=== PATIENT | female | born 1985 | race Caucasian/White ===

== ENCOUNTER 2019-12-25 13:51 | Emergency (ER) | payer OTHER ==
[~2019-12-25] VITALS: Ht 165.1 cm; Wt 56.7 kg
[2019-12-25] MEDS ORDERED: METOCLOPRAMIDE HCL 10 MG/2 ML VIAL IV ONE (14:30)
[2019-12-25] MEDS ORDERED: IV NS 0.9% 1,000 ML IV ONE (14:30)
[2019-12-25] MEDS ORDERED: ACETAMINOPHEN 325 MG TABLET PO ONE (14:30)
[2019-12-25] MEDS ORDERED: METOCLOPRAMIDE HCL 10 MG/2 ML VIAL ONE (14:31)
[2019-12-25] MEDS ORDERED: ACETAMINOPHEN ES 500 MG TABLET ONE (14:31)
[2019-12-25 14:58] LABS: BASOPHILS % (AUTO) 0.3 % (0.0-2.0); HEMATOCRIT 37 % (33-45); HEMOGLOBIN 12.8 g/dL (11.5-14.8); LYMPHOCYTES # (AUTO) 0.6 /CMM (0.8-4.8); MEAN CORPUSCULAR HGB CONC 35 g/dl (31.0-36.0); MEAN CORPUSCULAR VOLUME 90 fL (82-100); MONOCYTES # (AUTO) 0.7 /CMM (0.1-1.30); MONOCYTES % (AUTO) 7.6 % (2.0-12.0); NEUTROPHILS # (AUTO) 8.3 /CMM (1.8-8.9); NEUTROPHILS % (AUTO) 86.1 % (43.0-81.0); PLATELET COUNT (AUTO) 155 /CMM (150-450); RED BLOOD CELL COUNT(AUTO) 4.11 MIL/uL (4.0-5.2); WHITE BLOOD COUNT (AUTO) 9.7 K/uL (4.3-11.0)
[2019-12-25] MEDS ORDERED: IV NS 0.9% 500 ML BAG IV ONE (15:00)
--- NOTE | 2019-12-25 15:03 | NUR ---
Fever and dry cough x 3 days. PT AAOX4, VSS. RR EVEN & UNLABORED. DENIES CP, DIZZINESS, VOMITING, DIARRHEA @ THIS TIME. PT SEEN & EVAL'D BY DR. CORREA. MEDICATED ORDERED, PT ROSANNE WELL.
[2019-12-25 15:04] LABS: CALCIUM, SERUM 8.5 mg/dL (8.5-10.1); CREATININE 0.9 mg/dL (0.6-1.3); POTASSIUM 3.3 mmol/L (3.5-5.1)
[2019-12-25 15:09] LABS: ALBUMIN 3.3 g/dL (3.4-5.0); BILIRUBIN,DIRECT 0.1 mg/dL (0.0-0.2); BILIRUBIN,TOTAL 0.3 mg/dL (0.2-1.0); TOTAL PROTEIN, SERUM 7.3 g/dL (6.4-8.2)
[2019-12-25 15:56] VITALS: BP 113/76
--- NOTE | 2019-12-25 15:56 | NUR ---
Patient discharged to home in stable condition. Written and verbal after care instructions given. Patient verbalizes understanding of instruction. IV removed. Catheter intact and site benign. Pressure and 4x4 applied to site. No bleeding noted.
== END 2019-12-25 15:57 | disposition home or self-care (01) ==
LOC: ER 13:54
DX: B34.9 Viral infection, unspecified (principal); R50.9 Fever, unspecified; R51 Headache; R00.0 Tachycardia, unspecified; E87.1 Hypo-osmolality and hyponatremia; Z20.828 Contact with and (suspected) exposure to other viral communicable diseases
CPT/HCPCS: 36415; 71045; 80048; 80076; 85025; 96361; 96374; 99284; J2765; J7030

== ENCOUNTER 2022-03-27 17:40 | Emergency (ER) | payer OTHER ==
[~2022-03-27] VITALS: Ht 162.6 cm; Wt 54.4 kg
[2022-03-27 17:46] VITALS: BP 130/76
[2022-03-27] MEDS ORDERED: LORAZEPAM 1 MG TABLET PO ONE (18:00)
[2022-03-27] MEDS ORDERED: LORAZEPAM 1 MG TABLET ONE (18:01)
--- NOTE | 2022-03-27 18:17 | NUR ---
Patient discharged to home in stable condition. Written and verbal after care instructions given. Patient verbalizes understanding of instruction.
== END 2022-03-27 18:18 ==
LOC: ER 17:54
DX: R00.2 Palpitations (principal); G43.909 Migraine, unspecified, not intractable, without status migrainosus

== ENCOUNTER 2025-07-11 09:05 | Emergency (ER) | payer MEDICAID, OTHER ==
[~2025-07-11] VITALS: Ht 160 cm; Wt 57.2 kg
[2025-07-11 09:22] VITALS: BP 144/103; TEMP 98.2; O2SAT 97
== END 2025-07-11 09:57 | disposition home or self-care (01) ==
LOC: ER 09:10
DX: S40.022A Contusion of left upper arm, initial encounter (principal); F31.9 Bipolar disorder, unspecified; F17.200 Nicotine dependence, unspecified, uncomplicated; Z91.048 Other nonmedicinal substance allergy status; W50.1XXA Accidental kick by another person, initial encounter; Y93.89 Activity, other specified; Y92.89 Other specified places as the place of occurrence of the external cause; Y99.8 Other external cause status